=== PATIENT | female | born 1990 | race Caucasian/White ===

== ENCOUNTER 2020-04-30 09:48 | Outpatient (CLI) | payer OTHER, SELFPAY ==
--- NOTE | ~2020-04-30 | US_ITS ---
EXAMINATION: US OB <=14 wk fetus w TV DATE: 04/30/2020 10:41 INDICATION: Encounter for normal . TECHNIQUE: Real-time transabdominal and transvaginal obstetric ultrasound. FINDINGS: No prior studies The uterus measures 12.7 x 6.3 x 6.6 cm. There is an intrauterine gestational sac, with pole id entified. The crown rump length measures 1.41 cm, which correlates with a estimated gestational age of 7 weeks 5 days. heart tones are identified measuring 155 BPM. There is a 2 cm corpus lutea l cyst of the left ovary. IMPRESSION: 1. SL IUP with an EGA of 7 weeks, 5 days (EDC by current ultrasound of 12/12/2020). Reviewed, dictated and finalized at location A. IMPRESSION: 1. SL IUP with an EGA of 7 weeks, 5 days (EDC by current ultrasound of 12/13/19).
== END 2020-04-30 09:49 | disposition home or self-care (01) ==
PROVIDERS: Visit Provider Student in an Organized Health Care Education/Training Program
DX: Z34.91 Encounter for supervision of normal pregnancy, unspecified, first trimester (principal); Z3A.01 Less than 8 weeks gestation of pregnancy
CPT/HCPCS: 76801; 76817

== ENCOUNTER 2020-05-14 14:52 | Outpatient (CLI) | payer OTHER, SELFPAY ==
--- NOTE | ~2020-05-14 | US_ITS ---
EXAMINATION: US OB <=14 wk fetus w TV DATE: 05/14/2020 15:38 INDICATION: Threatened miscarriage TECHNIQUE: Real-time pelvic ultrasound utilizing both a transvaginal and transabdominal probe was pe rformed. The interpreting radiologist was not present for the study. COMPARISON: None. FINDINGS: The uterus measures 13.1 x 7.0 x 7.5 cm. There is an intrauterine gestational sac.There is a single pole with crown rump length measuring 2.3 cm, which correlates with an estimated gestational ag e of 9 weeks and 0 days. There is no discernible heart motion on cine grayscale or M-mode Doppl er consistent with demise. The right ovary is not visualized. The left ovary measures 3.4 x 2.6 x 2.3 cm. There are a few small anechoic cysts in the left ovary and larger 1.5 cm thick-walled centrally anechoic likely corpus lute um cyst in the left ovary. There is no free fluid in the pelvis. IMPRESSION: 1. Single pole with crown-rump length of 2.3 cm correlating with an estimated Gestational age by ultrasound of 9 weeks 0 day(s) +/- 6 day(s) with ultrasound estimated date of deli very (MARY) of 12/17/2020 but without evident heart motion consistent with demise. Reviewed, dictated and finalized at location A. IMPRESSION: 1. Single pole with crown-rump length of 2.3 cm correlating with an estim ated Gestational age by ultrasound of 9 weeks 0 day(s) +/- 6 day(s) with ultrasound estimated date of delivery (MARY) of 12/17/2020 but without evident heart m otion consistent with demise.
== END 2020-05-14 14:53 | disposition home or self-care (01) ==
PROVIDERS: Visit Provider Student in an Organized Health Care Education/Training Program
DX: O20.0 Threatened abortion (principal); Z3A.09 9 weeks gestation of pregnancy
CPT/HCPCS: 36415; 76801; 76817; 85461

== ENCOUNTER 2020-05-14 16:46 | Outpatient (CLI) | payer OTHER, SELFPAY | END 2020-05-14 16:47 | disposition home or self-care (01) | LOC: ANHLAB 16:48 | PROVIDERS: Visit Provider Student in an Organized Health Care Education/Training Program | DX: O02.1 Missed abortion (principal) | CPT/HCPCS: 36415; 85461 ==

== ENCOUNTER 2020-05-15 02:17 | Outpatient (CLI) | payer OTHER, SELFPAY ==
[2020-05-15 18:59] LABS: SARS-CoV-2 RNA PCR Negative
== END 2020-05-15 02:18 | disposition home or self-care (01) ==
LOC: ANHCOVIDDT 02:18
PROVIDERS: Visit Provider Student in an Organized Health Care Education/Training Program
DX: Z01.812 Encounter for preprocedural laboratory examination (principal); Z20.828 Contact with and (suspected) exposure to other viral communicable diseases
CPT/HCPCS: 87635; C9803; U0003

== ENCOUNTER 2020-05-17 00:34 | Day surgery (SDC) | payer OTHER, SELFPAY ==
[2020-05-14 16:59] VITALS: BMI 23.6
[2020-05-17 11:15] VITALS: BP 111/81; PULSE 86; RESP 20; TEMP 37; O2SAT 100
--- NOTE | 2020-05-17 11:24 | P.PNAN_ITS ---
Anes - Initial Pre Proc Eval Procedure: Operation Date: 05/17/20 13:00 Proposed Procedures p Suction Dilation and Curettage - Karina Maria MD Date/Time: 05/17/20 11:24 Surgeon: Karina Maria MD Pre Op Diagnosis: Missed Ab Patient Data Age: 29 Gender: F Height: 5 ft 2 in Weight: 58.51 kg Allergies Allergy/AdvReac Type Severity Reaction Status Date / Time No Known Allergies Allergy Verified 05/14/20 16:58 Home Medications Medication Instructions Recorded Confirmed Type acetaminophen 500 mg tablet 500 mg PO Q6H PRN 04/22/20 05/14/20 History ondansetron 4 mg disintegrating 4 mg PO Q6H PRN #30 tablet 04/22/20 05/14/20 Rx tablet prenat.vits,elise,eps-onao-vczvy 1 tablet PO DAILY 04/22/20 05/14/20 History sertraline 50 mg tablet 50 mg PO DAILY 04/22/20 05/14/20 History rizatriptan 10 mg PO ONCE PRN 05/14/20 05/14/20 History Patient hx anesthesia problems: post op nausea/vomiting Family hx anesthesia problems: none PMFSH Past Medical History Medical History Anxiety H/O nephrolithotomy with removal of calculi History of kidney stones Migraines Miscarriage 2020 Raynauds syndrome Vaginal delivery Surgical History Surgical History H/O dilation and curettage after miscarriage History of appendectomy History of strabismus surgery [place] teeth removed Social History Social History Smoking status: Never smoker Second hand tobacco smoke exposure: No Alcohol intake: former Substance use: never Living arrangements: with family Spiritual care concerns: No Anes - Eval Final PreProcedure Day of Procedure 05/17/20 11:24 Patient weight: normal Heart: regular rate and rhythm Lungs: clear to auscultation Airway: Mallampati scale class II Neurological: alert and oriented Last oral intake: >/= 8 hours ASA classification: II Emergent: no Anesthetic plan: proceed Anesthesia type and monitoring: general GIVS and standard monitoring Informed Consent: The patient's anesthetic plan and its attendant risks and benefits were discussed with the patient/family/POA. Questions were solicited and answers provided to the satisfaction of the patient/family/POA.
[2020-05-17] MEDS: LACTATED RINGERS 1,000 ML 30 ML IV CONT (11:26)
[2020-05-17 11:38] LABS: Hematocrit 34.1 % (37.0-47.0); Hemoglobin 11.6 g/dL (12.0-15.0); Mean Corpuscular Volume 88.1 fl (80-100); Platelet Count Result 258 k/mm3 (150-375); Red Blood Count 3.87 M/mm3 (4.2-5.4); Red Cell Distribution Width 13.2 % (11.5-14.5); White Blood Count 8.3 K/mm3 (4.5-10.0)
[2020-05-17] MEDS: ACETAMINOPHEN 500 MG TABLET 1000 MG PO (11:39)
[2020-05-17] MEDS: ONDANSETRON INJ 4 MG/2 ML VIAL IV PUSH (11:39)
--- NOTE | 2020-05-17 12:17 | PM.IMHP ---
H&P: HPI History of Present Illness Date/Time: 05/17/20 12:17 Chief complaint: Missed Ab Narrative: Humaira Beauchamp is a 29 year old female who was diagnosed with a missed measuring 9 week size on 05/14/20. Management options were discussed with patient including expectant, medical, and surgical. Patient desires surgical management. She reports feeling well today without complaints. Denies any bleeding or cramping. Review of Systems Review of Systems: All systems reviewed & are unremarkable except as noted in HPI and below Constitutional: Constitutional: Reports as per HPI, Reports no additional constitutional complaints, Denies chills, Denies fever(s), Denies headache(s) and Denies night sweats Eyes: Eyes: Reports as per HPI and Reports no additional eye complaints ENT: Reports system reviewed and no additional complaints, except as documented, Reports as per HPI, Reports Normal hearing present and Denies headache(s) Cardiovascular: Cardiovascular: Reports as per HPI, Reports no additional cardiovascular complaints, Denies chest pain and Denies dyspnea Respiratory: Respiratory: Reports as per HPI, Reports no additional respiratory complaints, Denies cough and Denies dyspnea Gastrointestinal: Gastrointestinal: Reports as per HPI, Reports no additional gastrointestinal complaints, Denies abdominal pain, Denies change in bowel habits, Denies change in stool character, Denies nausea and Denies vomiting Genitourinary: Genitourinary: Reports no additional female genitourinary complaints, Reports as per HPI, Denies abnormal vaginal bleeding, Denies genital lesions, Denies hot flashes, Denies dyspareunia, Denies pelvic pain, Denies sexual dysfunction, Denies urinary incontinence, Denies vaginal discharge, Denies vaginal dryness and Denies vaginal odor Musculoskeletal: Musculoskeletal: Reports no additional musculoskeletal complaints and Reports as per HPI Integumentary/Breasts: Skin/Breast: Reports system reviewed and no additional complaints, except as docu, Reports as per HPI, Denies breast pain and Denies nipple discharge Neurologic: Reports system reviewed and no additional complaints, except as documented, Reports as per HPI, Reports Normal hearing present and Denies headache(s) Psychiatric: Psychiatric: Reports no additional psychiatric complaints, Reports as per HPI, Denies anxiety and Denies depression Endocrine: Endocrine: Reports no additional endocrine complaints and Reports as per HPI Hematologic/Lymphatic: Hematologic/Lymphatic: Reports no additional hematologic/lymphatic complaints and Reports as per HPI Allergic/Immunologic: Allergic/Immunologic: Reports no additional allergic/immunologic complaints and Reports as per HPI PMFSH Past Medical History Medical History Anxiety H/O nephrolithotomy with removal of calculi History of kidney stones Migraines Miscarriage 2020 Raynauds syndrome Vaginal delivery Surgical History Surgical History H/O dilation and curettage after miscarriage History of appendectomy History of strabismus surgery [place] teeth removed Social History Social History Smoking status: Never smoker Second hand tobacco smoke exposure: No Alcohol intake: former Substance use: never Living arrangements: with family Spiritual care concerns: No Meds Home Medications and Allergies Home Medications Medication Instructions Recorded Confirmed Type acetaminophen 500 mg tablet 500 mg PO Q6H PRN 04/22/20 05/17/20 History ondansetron 4 mg disintegrating 4 mg PO Q6H PRN #30 tablet 04/22/20 05/17/20 Rx tablet prenat.vits,elise,lnx-svtc-pysbf 1 tablet PO DAILY 04/22/20 05/17/20 History sertraline 50 mg tablet 50 mg PO DAILY 04/22/20 05/17/20 History rizatriptan 10 mg PO ONCE PRN 05/14/20 05/17/20 History Allergies Al
--- NOTE | 2020-05-17 12:39 | WPDHPUPDATE1 ---
History and Physical Update Update Date/Time: 05/17/20 12:39 History and Physical has been reviewed, including an updated exam of the patient. There are NO changes in the patient's condition. Risks, benefits, and alternatives have been discussed and questions answered. Patient agrees to proceed with procedure.
--- NOTE | 2020-05-17 12:48 | PM.PROC ---
Procedure Note - Detailed Date of procedure: 05/17/20 Pre-op diagnosis: Missed Ab Post-op diagnosis: same Procedure performed: Suction dilation and curettage Description of procedure: The patient was taken to the operating room where she self transferred to the operating room table. Patient was placed in dorsal supine position. Anesthesia was administered and found to be adequate. The patient was repositioned in dorsal lithotomy position with the use of Jaden stirrups. The patient was prepped and draped in the usual sterile fashion. A red rubber catheter was used to drain the bladder of 100 cc of yellow urine. A bivalve speculum was inserted into vagina. The cervix was well visualized. The anterior lip of the cervix was grasped with a single-tooth tenaculum. A paracervical block was performed with 1% lidocaine. 5 cc of lidocaine was administered on both sides for a total of 10 cc. The cervix was then serially dilated to accommodate a size 9 rigid curette. The curette was introduced into the endometrial cavity and connected to the suction tubing. The suction aspirator was then activated and the curette was gently rotated clearing the cavity of all products of conception. Three passes with the rigid curette were made. A Perdue curette was then introduced into the endometrial cavity and all quadrants of the cavity were explored. A gritty texture was noted and the procedure was deemed complete. The tenaculum was removed. The tenaculum puncture sites were noted to be moderately bleeding. These sites were made hemostatic with three figure of eight sutures using 3-0 vicryl. Excellent hemostasis was noted. The vagina was then cleansed and dried and the speculum was removed. The remainder the patient was cleansed and dried. She was taken out of the dorsal lithotomy position and awakened from anesthesia without difficulty. She was transferred to recovery room in stable condition. All sponge and instrument counts were correct at the end of the procedure. The evacuated uterine contents were inspected and prepared to be sent to pathology for chromosome analysis. The patient tolerated the procedure well. Anesthesia: MAC Surgeon: Karina Maria MD Estimated blood loss (mL): 20 IV fluids (mL): 800 Urine output (mL): 100 Drains: No Packing: No Pathology: yes (products of conception) Complications: No immediate complications Condition: stable Disposition: same day Findings: Intraoperative findings: moderate amount of products of conception
[2020-05-17] MEDS: KETOROLAC 30 MG/ML VIAL (*BKC) 15 MG IV PUSH (13:15)
[2020-05-17 13:38] VITALS: BP 105/66; PULSE 86; RESP 14; O2SAT 98
[2020-05-17 14:00] VITALS: BP 109/73; PULSE 69; RESP 14; O2SAT 98
[2020-05-17 14:30] VITALS: BP 110/73; PULSE 69; RESP 14
== END 2020-05-17 14:38 | disposition home or self-care (01) ==
PROVIDERS: Visit Provider Student in an Organized Health Care Education/Training Program
PROC: (CPT 59820; principal; 2020-05-17 13:00)
DX: O02.1 Missed abortion (principal); F41.9 Anxiety disorder, unspecified; I73.00 Raynaud's syndrome without gangrene
CPT/HCPCS: 59820; 36415; 84702; 85027; 87635; 88305; A9270; C9803; J1885; J2250; J2405; J2704; J3010; J7120; U0003

== ENCOUNTER 2020-07-02 13:15 | Emergency (ER) | payer OTHER, SELFPAY ==
[2020-07-02 13:39] VITALS: BP 134/76; PULSE 93; RESP 18; TEMP 36.9; O2SAT 100
--- NOTE | 2020-07-02 16:20 | ED.ABDPAIN ---
HPI - Abdominal Pain General Chief Complaint: Vaginal Bleeding Stated Complaint: vag bleeding Time Seen by Provider: 07/02/20 16:18 Source: patient Mode of arrival: ambulatory Limitations: no limitations History of Present Illness HPI narrative: Patient is a 30-year-old female who presents for evaluation of vaginal bleeding. Patient is a , 1020, who had a D&C with Dr. Maria approximately 6 weeks ago for a miscarriage at 10 weeks. Patient had a light period approximately 2 weeks ago which lasted four days only, but then today experienced very heavy bleeding today. Patient has bled through 3 pads over the last 4 hours. She reports large clots. She denies any severe pain, but initially did have lower pelvic pain and cramping. No chest pain, palpitations, lightheadedness or shortness of breath. Related Data Home Medications Medication Instructions Recorded Confirmed prenat.vits,elise,ysn-gdyt-gwxut 1 tablet PO DAILY 04/22/20 06/11/20 naproxen sodium 220 mg capsule 220 mg PO BID PRN 06/11/20 06/11/20 Allergies Allergy/AdvReac Type Severity Reaction Status Date / Time No Known Allergies Allergy Verified 06/11/20 08:19 Review of Systems Review of Systems: Narrative: CONSTITUTIONAL: Denies fever, chills, or sweats. CARDIOVASCULAR: Denies chest pain, palpitations, or edema. RESPIRATORY: Denies cough or dyspnea. GASTROINTESTINAL: Denies current abdominal pain, nausea, vomiting GENITOURINARY: Denies dysuria or hematuria.Reports heavy vaginal bleeding. SKIN: Denies rash or itching. MUSCULOSKELETAL: Denies back pain, joint pain, or myalgia. NEUROLOGIC: Denies headache, numbness, or weakness. [facility] Past Medical History Medical History Anxiety H/O nephrolithotomy with removal of calculi History of kidney stones Migraines Miscarriage 2020 Raynauds syndrome Vaginal delivery Surgical History Surgical History H/O dilation and curettage after miscarriage History of appendectomy History of strabismus surgery [place] teeth removed Social History Social History Social History: Smoking status: Never smoker Second hand tobacco smoke exposure: No Alcohol intake: current Substance use: never Substance use type: does not use Gender identity (if verbalized by the patient): Female Spiritual care concerns: No Exam Narrative: Exam Narrative: GENERAL: Awake, alert, conversant HEAD: Normocephalic, atraumatic. EYES: PERRLA and EOMI. ENT: Nares clear, no rhinorrhea or epistaxis. Mucous membranes moist. NECK: Supple. CHEST: No respiratory distress, breathing even and non labored HEART: Regular rate, sinus rhythm ABDOMEN:Non distended, non tender : Labia majora and minora normal without lesions. Vagina with blood. Large blood clot present. No brisk bleeding. No cervical motion tenderness. Cervical os is closed. No adnexal tenderness or fullness bilaterally. No purulent discharge present. EXTREMITIES: Normal range of motion. No edema. SKIN: Warm, dry, no rash. NEURO:No focal deficits. Alert and oriented x3 Course Vital Signs Vital signs: Vital Signs Temperature 36.9 C 07/02/20 13:39 Pulse Rate 93 07/02/20 13:39 Respiratory Rate 18 07/02/20 13:39 Blood Pressure 134/76 07/02/20 13:39 Pulse Oximetry 100 07/02/20 13:39 Temperature 36.9 C 07/02/20 13:39 Pulse Rate 76 07/02/20 17:20 Respiratory Rate 16 07/02/20 16:28 Blood Pressure 109/86 07/02/20 17:20 Pulse Oximetry 96 07/02/20 16:28 MDM - Abdominal Pain MDM Narrative Medical decision making narrative: Patient presented for evaluation of a heavy vaginal bleeding. At the time of assessment, ABCs are intact and vital signs are stable. No brisk bleeding on cervical exam. Cervix is normal-appearing without signs of cervicitis, no adnexal tendern
[2020-07-02 16:28] VITALS: BP 148/88; PULSE 85; RESP 16; O2SAT 96
[2020-07-02 17:15] LABS: Basophils Percent Auto 0.2 % (0.2-1.2); Eosinophils Absolute Auto 0.1 K/mm3 (0-0.3); Eosinophils Percent Auto 0.6 % (0-4.4); Hematocrit 38.1 % (37.0-47.0); Immature Granulocyte Absolute 0.02 K/mm3 (0.00-0.031); Immature Granulocyte Percent A 0.2 % (0-0.5); Lymphocytes Absolute Auto 2.26 K/mm3 (0.9-3.2); Lymphocytes Percent Auto 25.1 % (18.3-44.2); Mean Corpuscular HGB Conc 34.1 g/dl (32-36); Mean Corpuscular Hemoglobin 30.2 pg (26-34); Mean Corpuscular Volume 88.4 fl (80-100); Mean Platelet Volume 9.5 fl (7.4-10.4); Monocytes Absolute Auto 0.8 K/mm3 (0.1-0.6); Monocytes Percent Auto 8.7 % (2.6-8.5); Neutrophils Absolute Auto 5.9 K/mm3 (1.3-6.7); Neutrophils Percent Auto 65.2 % (45.5-73.1); Platelet Count Result 269 k/mm3 (150-375); Red Blood Count 4.31 M/mm3 (4.2-5.4); Red Cell Distribution Width 12.6 % (11.5-14.5)
[2020-07-02 17:18] VITALS: BP 116/81; BP 117/84; PULSE 73; PULSE 77
[2020-07-02 17:20] VITALS: BP 109/86; PULSE 76
[2020-07-02 17:25] LABS: Prothrombin Time 13.3 Seconds (11.1-14.7)
[2020-07-02 17:26] LABS: Alanine Aminotransferase 15 U/L (4-35); Albumin Level 4.7 g/dL (3.5-5.1); Alkaline Phosphatase 57 U/L (38-126); Anion Gap 12 mmol/L (8-16); Aspartate Amino Transferase 28 U/L (14-36); Bilirubin,Total 0.3 mg/dL (0.2-1.3); Blood Urea Nitrogen 17 mg/dL (7-17); Calcium 9.8 mg/dL (8.4-10.2); Carbon Dioxide 23 mmol/L (22-30); Chloride 104 mmol/L (98-107); Estimated CRCL calculation 63 ml/min; Estimated Glomerular Filt Rate > 60; Glucose 100 mg/dL (65-105); Partial Thromboplastin Time 26.4 SECONDS (22.3-36.8); Potassium 4.1 mmol/L (3.4-5.0); Sodium 139 mmol/L (137-145)
[2020-07-02 17:43] LABS: Beta HCG Quantitative < 2.39 mIU/ML
[2020-07-02 17:48] LABS: Add Urine Microscopic? YES; Appearance Urine Clear (Clear); Bilirubin Urine Negative (Negative); Blood Urine 3+ (Negative); Color Urine Straw (Yellow); Glucose Urine UA Negative (Negative); Ketones Urine Negative (Negative); Leukocyte Esterase Ur Negative LEU/UL (Negative); Mucus Urine Rare /lpf; Nitrate Urine Negative (Negative); Protein Urine Negative (Negative); RBC Urine >75 /hpf (0-2); Specific Grav Ur 1.013 (1.001-1.035); Squamous Epithelial Cell Urine Few /hpf (Few); Urobilinogen Urine Negative mg/dL (<2.0); WBC Urine 0-3 /hpf
[2020-07-02 18:07] VITALS: BP 117/90; PULSE 77; RESP 16; O2SAT 98
== END 2020-07-02 18:25 | disposition home or self-care (01) ==
PROVIDERS: Emergency Provider Emergency Medicine; PCP Family Medicine
DX: N93.9 Abnormal uterine and vaginal bleeding, unspecified (principal); I73.00 Raynaud's syndrome without gangrene; Z87.442 Personal history of urinary calculi
CPT/HCPCS: 36415; 80053; 81001; 81025; 84443; 84702; 85025; 85610; 85730; 86850; 86900; 86901; 99283

== ENCOUNTER 2021-01-25 15:30 | Outpatient (CLI) | payer OTHER, SELFPAY ==
[2021-01-25 16:20] LABS: Beta HCG Quantitative 39.53 mIU/ML
[2021-01-29 08:07] LABS: Progesterone 14.1 ng/mL (***)
== END 2021-01-25 15:31 | disposition home or self-care (01) ==
PROVIDERS: PCP Family Medicine; Visit Provider Student in an Organized Health Care Education/Training Program
DX: Z87.59 Personal history of other complications of pregnancy, childbirth and the puerperium (principal)
CPT/HCPCS: 36415; 84144; 84702

== ENCOUNTER 2021-01-27 15:11 | Outpatient (CLI) | payer OTHER, SELFPAY ==
[2021-01-27 16:39] LABS: Beta HCG Quantitative 90.08 mIU/ML
== END 2021-01-27 15:12 | disposition home or self-care (01) ==
PROVIDERS: PCP Family Medicine; Visit Provider Student in an Organized Health Care Education/Training Program
DX: Z87.59 Personal history of other complications of pregnancy, childbirth and the puerperium (principal)
CPT/HCPCS: 36415; 84702

== ENCOUNTER 2021-02-08 08:39 | Outpatient (CLI) | payer OTHER, SELFPAY ==
--- NOTE | ~2021-02-08 | US_ITS ---
EXAMINATION: US OB <=14 wk fetus w TV EXAM DATE: 02/08/2021 10:05 INDICATION: Check viability and dating. 1st trimester. TECHNIQUE: Pelvic obstetrical transabdominal and transvaginal sonogram was performed by a technkwabena david. There are multiple grayscale and Doppler images available for interpretation. There are no jefe ier studies of this gestation for comparison. FINDINGS: Uterus measures 6.6 x 4.4 x 5.7 cm, morphologically normal and retroverted position, withou t intrauterine gestation identified. Endometrial stripe measures 9 mm, within normal limits. There i s trace free pelvic fluid. Right adnexa: The ovary measures 3.3 x 1.7 x 2.1 cm, with complex cystic lesion within the right ovar y or fallopian tube contiguous to it, demonstrates suspected pole with heart rate confirmed at 135 bpm. Identification of suspected yolk sac within cystic component of this. Ovarian vascular flow confirmed. Left adnexa: The left ovary is normal in size and morphology. IMPRESSION: Right adnexal ectopic . STAT hold and call. I confirmed with Marianne that patient is in waiting room. She is notifying orderi doctor of results and patient will be given instructions at that time. I attempted to contact the doctor's office but got recordings. Reviewed, dictated and finalized at location B. IMPRESSION: Right adnexal ectopic . STAT hold and call. I confirmed with Marianne that patient is in waiting room. S he is notifying ordering doctor of results and patient will be given instructio ns at that time. I attempted to contact the doctor's office but got recordings.
== END 2021-02-08 08:40 | disposition home or self-care (01) ==
PROVIDERS: PCP Family Medicine; Visit Provider Student in an Organized Health Care Education/Training Program
DX: Z36.9 Encounter for antenatal screening, unspecified (principal); Z3A.00 Weeks of gestation of pregnancy not specified
CPT/HCPCS: 76801; 76817

== ENCOUNTER 2021-02-08 12:47 | Day surgery (SDC) | payer OTHER, SELFPAY ==
[2021-02-08] VITALS (10 sets, daily range): BP systolic 94–107; BP diastolic 51–66; PULSE 72–97; RESP 12–18; TEMP 36.2–37.2; O2SAT 98–100
[2021-02-08] MEDS: LACTATED RINGERS 1,000 ML 30 ML IV CONT ×2 (13:10→16:11)
[2021-02-08] MEDS: ONDANSETRON INJ 4 MG/2 ML VIAL IV PUSH ×2 (13:36→17:24)
[2021-02-08] MEDS: KETOROLAC 15 MG/ML VIAL (*BKC) IV PUSH (13:37)
[2021-02-08] MEDS: ACETAMINOPHEN 500 MG TABLET 1000 MG PO (13:41)
--- NOTE | 2021-02-08 14:08 | P.PNAN_ITS ---
Anes - Initial Pre Proc Eval Procedure: Operation Date: 02/08/21 15:00 Proposed Procedures p Diagnostic Laparoscopy Possible Operative Laparoscopy - Karina Maria MD Date/Time: 02/08/21 14:08 Surgeon: Karina Maria MD Pre Op Diagnosis: ectopic Patient Data Age: 30 Gender: F Height: Weight: 58.9 kg Allergies Allergy/AdvReac Type Severity Reaction Status Date / Time No Known Allergies Allergy Verified 02/08/21 13:45 Home Medications Medication Instructions Recorded Confirmed Type prenat.vits,elise,hyp-slyo-jsrix 1 tablet PO DAILY 04/22/20 02/08/21 History sertraline 50 mg tablet 50 mg PO DAILY #90 tablet 09/09/20 02/08/21 Rx doxylamine succinate 25 mg tablet 25 mg PO QHS PRN 02/08/21 02/08/21 History Patient hx anesthesia problems: none Family hx anesthesia problems: none PMFSH Past Medical History Medical History Anxiety H/O nephrolithotomy with removal of calculi History of kidney stones Migraines Miscarriage 2020 Raynauds syndrome Vaginal delivery Surgical History Surgical History H/O dilation and curettage after miscarriage History of appendectomy History of strabismus surgery [place] teeth removed Social History Social History Social History: Smoking status: Never smoker Second hand tobacco smoke exposure: No Alcohol intake: current Alcohol use details: occasionally Substance use: never Substance use type: does not use Gender identity (if verbalized by the patient): Female Spiritual care concerns: No Anes - Eval Final PreProcedure Day of Procedure 02/08/21 14:08 Patient weight: normal Heart: regular rate and rhythm Lungs: clear to auscultation and normal air movement Airway: Mallampati scale class II Neurological: alert and oriented Last oral intake: >/= 8 hours ASA classification: II Emergent: yes Anesthetic plan: proceed Anesthesia type and monitoring: general ETT and standard monitoring Informed Consent: The patient's anesthetic plan and its attendant risks and benefits were discussed with the patient/family/POA. Questions were solicited and answers provided to the satisfaction of the patient/family/POA.
[2021-02-08] MEDS: SCOPOLAMINE 1.5 MG PATCH TRANSDERM (14:17)
[2021-02-08] MEDS: FAMOTIDINE 20 MG/2 ML VIAL IV PUSH (14:17)
--- NOTE | 2021-02-08 14:49 | PM.IMHP ---
H&P: HPI History of Present Illness Date/Time: 02/08/21 14:49 Patient presented to gynecology office earlier today following an ultrasound. Patient had schedule pelvic ultrasound performed earlier this morning which showed a suspected right ectopic . In general, patient reports feeling well. She does, however, report vaginal spotting last week that ranged from minimal to similar to a light menses. Patient also reports intermittent lower abdominal pain or discomfort. Also reports recent GI symptoms so uncertain of whether not abdominal discomfort is related to this issue. Chief Complaint: Suspected right ectopic PMFSH Past Medical History Medical History Anxiety H/O nephrolithotomy with removal of calculi History of kidney stones Migraines Miscarriage 2020 Raynauds syndrome Vaginal delivery Surgical History Surgical History H/O dilation and curettage after miscarriage History of appendectomy History of strabismus surgery [place] teeth removed Social History Social History Social History: Smoking status: Never smoker Second hand tobacco smoke exposure: No Alcohol intake: current Alcohol use details: occasionally Substance use: never Substance use type: does not use Gender identity (if verbalized by the patient): Female Spiritual care concerns: No Meds Home Medications and Allergies Home Medications Medication Instructions Recorded Confirmed Type prenat.vits,elise,lya-kzny-uxmni 1 tablet PO DAILY 04/22/20 02/08/21 History sertraline 50 mg tablet 50 mg PO DAILY #90 tablet 09/09/20 02/08/21 Rx doxylamine succinate 25 mg tablet 25 mg PO QHS PRN 02/08/21 02/08/21 History Allergies Allergy/AdvReac Type Severity Reaction Status Date / Time No Known Allergies Allergy Verified 02/08/21 13:45 Vital Signs Vital Signs - 24 hr 02/08/21 13:00 Temperature 37.2 C Pulse Rate 88 Respiratory Rate 18 Blood Pressure 98/58 L Pulse Oximetry 98 Exam Const: General: cooperative, healthy appearing, comfortable and no acute distress HENMT: Head: normal to inspection Ears: hearing grossly normal bilaterally Neck: Neck: normal visual inspection Resp: Effort & Inspection: normal respiratory effort Auscultation: clear to auscultation bilaterally Cardio: Rate: regular rate Rhythm: regular rhythm GI: Inspection: non-distended GI Palp: Yes Soft to palpation and No Tenderness to palpation present (GI) : Other: deferred to OR Skin: General skin exam: normal color and no rashes or lesions noted Extrem: Right lower extremity: no edema Left lower extremity: no edema Other: no calf tenderness Assessment and Plan Assessment and plan (1) Ectopic without intrauterine : Code(s): O00.90 - Unspecified ectopic without intrauterine Status: Acute Assessment and Plan: Patient with suspected right ectopic Management options discussed including medical management vs. surgical management Recommend proceeding with surgery as medication is a relative contraindication due to presence of cardiac activity Plan for diagnostic laparoscopy, possible operative laparoscopy with removal of ectopic , possible salpingectomy or oophorectomy Procedure, risks, and benefits discussed with patient, including, but not limited to bleeding, infection, injury to surrounding organs, possible removal of fallopian tube and/or ovary, need to convert to open abdominal surgery/laparotomy, risks of anesthesia, up to and including Expected hospital stay, postoperative course and care, and recovery expectations discussed Rh positive Patient understands and agrees with plan Consent forms signed All questions and concerns addressed
--- NOTE | 2021-02-08 14:52 | WPDHPUPDATE1 ---
History and Physical Update Update Date/Time: 02/08/21 14:52 History and Physical has been reviewed, including an updated exam of the patient. There are NO changes in the patient's condition. Risks, benefits, and alternatives have been discussed and questions answered. Patient agrees to proceed with procedure.
[2021-02-08 15:19] LABS: Hematocrit 33.4 % (37.0-47.0); Hemoglobin 11.4 g/dL (12.0-15.0); Mean Corpuscular HGB Conc 34.1 g/dl (32-36); Mean Corpuscular Hemoglobin 29.6 pg (26-34); Mean Corpuscular Volume 86.8 fl (80-100); Mean Platelet Volume 9.5 fl (7.4-10.4); Platelet Count Result 237 k/mm3 (150-375); Red Blood Count 3.85 M/mm3 (4.2-5.4); Red Cell Distribution Width 12.8 % (11.5-14.5); White Blood Count 9.5 K/mm3 (4.5-10.0)
[2021-02-08] MEDS: BUPIVACAINE/EPINEPHRINE 0.25% 10 ML VIAL 14 ML INFILTRATE (15:59)
--- NOTE | 2021-02-08 16:12 | W.PM.PROC2 ---
Procedure Note - Detailed Date of Procedure 02/08/21 Pre-op Diagnosis Suspected right ectopic Post-op Diagnosis same Procedure Performed Laparoscopic right salpingectomy Surgeon Karina Maria MD Fitter Type Bar And Segment Troy Duong Anesthesia general Findings Grossly normal appearing uterus, right and left ovaries, and left fallopian tube. Dilated right fallopian tube noted. Minimal amount of dark blood in posterior cul-de-sac noted upon entry. Description of Procedure The patient was taken to the operating room where she self transferred to operating room table. She was placed in dorsal supine position. Anesthesia was administered and found to be adequate. The patient was repositioned in dorsal lithotomy position with the use of Jaden stirrups. An examination anesthesia was performed with the uterus measuring approximately 6 week size. Cervical os closed. Minimal dark brown discharge noted on examining glove. She was prepped and draped in usual sterile fashion. A red rubber catheter was used to drain the bladder of 20 cc of yellow urine. A sponge stick was placed in the vagina for use during the laparoscopic portion of the case. Associate Professor Of Biology's gloves were changed and attention was turned to the patient's abdomen. A small amount of 0.25% Marcaine was injected in the infraumbilical region. A small infraumbilical incision was made with a scalpel. With the abdomen tented up, a Veress needle was introduced into the abdominal cavity. Confirmation was made with saline. The Veress needle was attached to carbon dioxide tubing and insufflation was begun. When adequate pneumoperitoneum was achieved at 15 mmHg, the Veress needle was removed. A 5mm Optiview trocar was introduced into the abdominal cavity under direct visualization with the laparoscope. The trocar was removed and the laparoscope was replaced through the sheath. The patient was placed in Trendelenburg position and a pelvic survey was performed, however limited. Decision was made to place two accessory ports, one in the right lower quadrant and the other in the left lower quadrant. A small amount of Marcaine was injected in the left lower quadrant. A 5 mm skin incision was made with a scalpel and a 5 mm trocar was introduced under direct visualization. Similarly, in the right lower quadrant, a small amount of Marcaine was injected. A 5 mm skin incision was made and a 5 mm trocar was introduced also on direct visualization. With the use of an atraumatic grasper, a thorough pelvic survey was completed. Several areas of the pelvic appeared hyperemic, possibly reactive from blood and irritation. A minimal amount of dark blood was noted in the posterior cul-de-sac. The uterus appeared to be grossly normal as did the left fallopian tube. Both the left and right ovaries also appeared normal. The right fallopian tube appeared to be dilated in the infundibular region near the fimbriated end. Minimal dripping of dark blood from the fimbriated end was noted, however, there was no heavy, active bleeding seen. The right ureter was visualized. The fimbriated end of the fallopian tube was grasped. With a 5mm LigaSure device, the mesosalpinx beneath the fallopian tube was grasped and transected. Serial bites with the LigaSure device continued proximally until the uterine cornua was reached. The fallopian tube was then transected completely freeing the specimen. No bleeding was noted. A 5 mm Endo-Catch bag was introduced into the abdominal cavity. The specimen was placed inside of the bag and the bag was removed without difficulty. The right lower quadrant trocar was replaced. The pelvic cavity was suctioned, irrigated and suctioned again. Excellent hemostasis was noted. A general abdominal cavity survey was performed. The liver and gallbladder appeared grossly normal. The left lower quadrant trocar was removed under direct visualization as was the right. The abdomen was desufflated and the infraumbilical trocar
== END 2021-02-08 17:49 | disposition home or self-care (01) ==
PROVIDERS: PCP Family Medicine; Visit Provider Student in an Organized Health Care Education/Training Program
PROC: (CPT 49320; principal; 2021-02-08 15:00)
DX: O00.101 Right tubal pregnancy without intrauterine pregnancy (principal); F41.9 Anxiety disorder, unspecified
CPT/HCPCS: 59151; 36415; 76801; 76817; 84702; 85027; 88305; A9270; C9290; J0330; J1885; J2250; J2270; J2405; J2704; J7030; J7120

== ENCOUNTER 2021-05-03 12:48 | Outpatient (CLI) | payer OTHER, SELFPAY ==
[2021-05-03 13:18] LABS: Hematocrit 37.2 % (37.0-47.0); Hemoglobin 12.5 g/dL (12.0-15.0); Mean Corpuscular HGB Conc 33.6 g/dl (32-36); Mean Corpuscular Hemoglobin 29.8 pg (26-34); Mean Corpuscular Volume 88.8 fl (80-100); Mean Platelet Volume 9.7 fl (7.4-10.4); Platelet Count Result 263 k/mm3 (150-375); Red Blood Count 4.19 M/mm3 (4.2-5.4); Red Cell Distribution Width 12.7 % (11.5-14.5); White Blood Count 5.4 K/mm3 (4.5-10.0)
[2021-05-03 14:00] LABS: Beta HCG Quantitative < 2.39 mIU/ML
== END 2021-05-03 12:49 | disposition home or self-care (01) ==
PROVIDERS: PCP Nurse Practitioner Family; Visit Provider Student in an Organized Health Care Education/Training Program
DX: Z98.890 Other specified postprocedural states (principal)
CPT/HCPCS: 36415; 84443; 84702; 85027

== ENCOUNTER 2021-09-01 12:41 | Outpatient (CLI) | payer OTHER, SELFPAY ==
--- NOTE | ~2021-09-01 | US_ITS ---
EXAMINATION: US pelvic complete w TV DATE: 09/01/2021 13:15 INDICATION: Pelvic pain Comparison:No prior studies for comparison. TECHNIQUE: Multiple transabdominal and endovaginal sonographic images of the pelvis performed. FINDINGS: The uterus measures 7.3 x 4.3 x 5.1 cm. There is a 1 cm nabothian cysts. The endometrial co mplex measures 9 mm. The right ovary measures 2.7 x 1.6 x 1.3 cm and the left ovary measures 3.9 x 3.4 x 3.7 cm. There is a complex 3.9 cm left ovarian cyst, likely hemorrhagic. There are small follicles in each ovary. Norm al doppler signal in both ovaries. There is free fluid in the pelvis. There are no abnormal masses seen on either side. IMPRESSION: 1. Complex left ovarian cyst measuring up to 3.9 cm, likely hemorrhagic. Reviewed, dictated and finalized at location B. MAN/PILE DRIVING AND ERECTION
== END 2021-09-01 12:42 | disposition home or self-care (01) ==
PROVIDERS: PCP Nurse Practitioner Family; Visit Provider Student in an Organized Health Care Education/Training Program
DX: R10.2 Pelvic and perineal pain (principal); N83.202 Unspecified ovarian cyst, left side
CPT/HCPCS: 76830; 76856

== ENCOUNTER 2021-11-08 13:35 | Outpatient (CLI) | payer OTHER, SELFPAY ==
--- NOTE | ~2021-11-08 | XR_ITS ---
EXAMINATION: XR abdomen/kub 1V DATE: 11/08/2021 13:49 INDICATION: Kidney stone. TECHNIQUE: A supine view of the abdomen was obtained. COMPARISON: None. FINDINGS: There are no dilated loops of bowel. There are two 1-2 mm calcifications in right pelvis. T here is a 6 mm calcification in left pelvis. IMPRESSION: 1. Calcifications in the pelvis, which may be phleboliths. Distal ureteral stone cannot be excluded. Reviewed, dictated and finalized at location A. IMPRESSION: 1. Calcifications in the pelvis, which may be phleboliths. Distal ureteral ston e cannot be excluded.
== END 2021-11-08 13:36 | disposition home or self-care (01) ==
PROVIDERS: PCP Nurse Practitioner Family; Visit Provider Nurse Practitioner Family
DX: Z87.442 Personal history of urinary calculi (principal)
CPT/HCPCS: 74018

== ENCOUNTER 2021-11-21 09:24 | Outpatient (CLI) | payer OTHER, SELFPAY ==
--- NOTE | ~2021-11-21 | CT_ITS ---
EXAMINATION: CT abdomen pelvis wo con DATE: 11/21/2021 10:03 INDICATION: Kidney stones. TECHNIQUE: Computed tomography (CT) of the abdomen and pelvis was performed without intravenous contr ast. Automated exposure control and iterative reconstruction technique were employed. The dose-length product was 167.00 mGy-cm. COMPARISON: Abdomen radiographs 11/08/2021 FINDINGS: The visualized portions of the lung bases are clear without pneumonia or pleural effusion. The heart size is normal. No pericardial effusion. The liver, gallbladder, spleen, pancreas, adrenal glands, and right kidney are normal. There is a 3 mm stone in left kidney. There are no dilated loops of bowel. There are changes of appendectomy. There are no pathologically enlarged lymph nodes. There is no free intraperitoneal fluid. There are chronic bilateral L5 pars defects. There is 5 mm anterol isthesis of L5 on S1. There is mild chronic height loss of L5 vertebral body posteriorly. IMPRESSION: 1. 3 mm nonobstructing left kidney stone. Reviewed, dictated and finalized at location B.
== END 2021-11-21 09:25 | disposition home or self-care (01) ==
LOC: ANHIMG 09:30
PROVIDERS: PCP Nurse Practitioner Family; Visit Provider Nurse Practitioner Family
DX: N20.0 Calculus of kidney (principal)
CPT/HCPCS: 74176

== ENCOUNTER → 2021-11-22 13:25 | Outpatient (CLI) | payer OTHER, SELFPAY ==
--- NOTE | ~2021-11-22 | US_ITS ---
EXAMINATION: US pelvic complete w TV EXAM DATE: 11/22/2021 13:45 INDICATION: R10.2 - Pelvic and perineal pain. TECHNIQUE: Pelvic transabdominal and transvaginal sonogram was performed. There are multiple graysca le and Doppler images available for interpretation. Comparison is made to prior examination from 09/01. FINDINGS: Uterus measures 6.4 x 3.8 x 4.5 cm, and is morphologically normal. Endometrial stripe zana sures 9 mm, within normal limits. There is small free pelvic fluid. Right adnexa: The ovary measures 3.1 x 2.6 x 2.3 cm and is morphologically normal. Ovarian vascular f low confirmed. Left adnexa: The ovary measures 2.5 x 1.6 x 1.2 cm and is morphologically normal. Previously seen hem orrhagic cyst has resolved. Ovarian vascular flow confirmed. IMPRESSION: Unremarkable pelvic ultrasound exam. Reviewed, dictated and finalized at location A.
== END ==
PROVIDERS: PCP Nurse Practitioner Family; Visit Provider Student in an Organized Health Care Education/Training Program
DX: R10.2 Pelvic and perineal pain (principal)
CPT/HCPCS: 76830; 76856

== ENCOUNTER → 2022-09-05 14:41 | Outpatient (CLI) | payer OTHER, SELFPAY ==
--- NOTE | ~2022-09-05 | CT_ITS ---
EXAMINATION: CT abdomen pelvis wo con DATE: 09/05/2022 15:11 INDICATION: Left flank pain TECHNIQUE: Computed tomography (CT) of the abdomen and pelvis was performed without intravenous contr ast. The dose-length product (DLP) was 277.90 mGy-cm. Automated exposure control and iterative recons truction technique were employed. COMPARISON: 11/21/2021 FINDINGS: The lung bases are clear. The heart size is normal. The liver, spleen, pancreas, gallbladde r, and adrenal glands are normal. The right kidney is unremarkable. There is a [address] one of the left kidney lower pole. No stones are identified in the ureters or bladder. No pathologica lly enlarged abdominal or pelvic lymph nodes are identified. There is no free intraperitoneal gas or evidence of bowel obstruction. There are changes of appendectomy. A moderate volume of colonic stool is present. There are bilateral L5 pars defects with grade 1 anterolisthesis of L5 on S1. A tiny umbi lical hernia containing fat is noted. IMPRESSION: 1. Nonobstructing left nephrolithiasis. Reviewed, dictated and finalized at location B. ATION THERAPIST
--- NOTE | ~2022-09-05 | XR_ITS ---
XR abdomen/kub 1V 09/05/2022 15:11 INDICATION: Unspecified abdominal pain TECHNIQUE: KUB COMPARISON: 11/08/2021 FINDINGS: Bowel gas pattern is normal. There is no evidence of free air, mass, organomegaly, ascites or obstruction. No abnormal calculi are seen. There are pelvic phleboliths. The bones appear intact . IMPRESSION: 1: No acute abdominal abnormality identified. Reviewed, dictated and finalized at location A. CENTER SUPPORT CONSULTANT
== END ==
PROVIDERS: PCP Nurse Practitioner Family; Visit Provider Nurse Practitioner Family
DX: N20.0 Calculus of kidney (principal)
CPT/HCPCS: 74018; 74176